=== PATIENT | female | born 1990 | race Caucasian/White ===

== ENCOUNTER 2018-06-14 10:32 | Day surgery (SDC) | payer MEDICAID ==
[2018-06-13 11:09] LABS: BASOPHILS # (AUTO) 0.03 x10^3/uL (0-0.1); BASOPHILS % (AUTO) 0 % (0-1); EOSINOPHILS # (AUTO) 0.06 x10^3/uL (0-0.4); EOSINOPHILS % (AUTO) 1 % (1-7); LYMPHOCYTES # (AUTO) 1.96 x10^3/uL (1-3.4); LYMPHOCYTES % (AUTO) 30 % (22-44); MD NO; MEAN CORPUSCULAR HEMOGLOBIN 29.6 pg (27.0-34.8); MEAN PLATELET VOLUME 9.5 fL (7.4-10.4); MONOCYTES # (AUTO) 0.46 x10^3/uL (0.2-0.8); MONOCYTES % (AUTO) 7 % (2-9); NEUTROPHILS # (AUTO) 4.09 x10^3/uL (1.8-6.8); NEUTROPHILS % (AUTO) 62 % (42-75); PLATELET COUNT 226 x10^3/uL (130-400); RED BLOOD COUNT 4.89 x10^6/uL (3.82-5.3); RED CELL DISTRIBUTION WIDTH 13.6 % (9.6-15.2)
[2018-06-13 11:11] LABS: MICROSCOPIC INDICATED
[2018-06-13 11:12] LABS: CULTURE INDICATED? YES
[2018-06-13 13:08] LABS: ALBUMIN 3.9 g/dL (3.4-5.0); ANION GAP 9 mmol/L (5-15); CALCIUM 8.9 mg/dL (8.5-10.1); CHLORIDE 107 mmol/L (98-107); CREATININE 0.86 mg/dL (0.55-1.02)
[2018-06-13 13:12] LABS: ALKALINE PHOSPHATASE 82 U/L (45-117); BILIRUBIN,TOTAL 0.4 mg/dL (0.2-1.0); TOTAL PROTEIN 8.6 g/dL (6.4-8.2)
[2018-06-13 13:14] LABS: ALANINE AMINOTRANSFERASE 26 U/L (12-78)
[~2018-06-14] VITALS: Ht 152.4 cm; Wt 68.0 kg
[~2018-06-14 10:32] MED LIST: DOCU-131 PO; IBUP-1222 PO; NITR100C56 PO; No meds per pt.
[2018-06-14] MEDS ORDERED: LACTATED RINGERS 1,000 ML IV SCH (11:12)
[2018-06-14 11:13] VITALS: BP 121/80
[2018-06-14] MEDS ORDERED: MIDAZOLAM 1 MG/ML, 2ML ONE (12:36)
[2018-06-14] MEDS ORDERED: FENTANYL PF 250 MCG/5ML ONE (12:36)
[2018-06-14] MEDS ORDERED: BUPIVACAINE 0.25% ONE (12:43)
[2018-06-14] MEDS ORDERED: SILVER NITRATE STICK TP ONE (12:43)
[2018-06-14] MEDS ORDERED: PROPOFOL 10 MG/ML, 20ML ONE (13:05)
[2018-06-14] MEDS ORDERED: ONDANSETRON 2MG/ML, 2ML ONE (13:05)
[2018-06-14] MEDS ORDERED: SUCCINYLCHOLINE 20 MG/ML, 10ML ONE (13:05)
[2018-06-14] MEDS ORDERED: DEXAMETHASONE 4 MG/ML, 1ML ONE (13:05)
[2018-06-14] MEDS ORDERED: ROCURONIUM 10 MG/ML,10ML ONE (13:05)
[2018-06-14] MEDS ORDERED: KETOROLAC 30 MG/1 ML ONE (13:05)
[2018-06-14] MEDS ORDERED: LABETALOL 5MG/ML, 20ML IV PRN (13:30)
[2018-06-14] MEDS ORDERED: hydrALAzine 20 MG/ML, 1ML IV PRN (13:30)
[2018-06-14] MEDS ORDERED: OXYcodone 5 MG/5 ML ORAL.SOL UDC PO PRN (13:30)
[2018-06-14] MEDS ORDERED: METOCLOPRAMIDE 5 MG/ML, 2ML IV PRN (13:30)
[2018-06-14] MEDS ORDERED: ALBUTEROL SULFATE 2.5 MG/3 ML NPPB PRN (13:30)
[2018-06-14] MEDS ORDERED: PROMETHAZINE 25 MG/ML, 1ML IV PRN (13:30)
[2018-06-14] MEDS ORDERED: HYDROmorphone 1 MG/ML, 1ML IV PRN (13:30)
[2018-06-14] MEDS ORDERED: MEPERIDINE/PF 25MG/0.5ML IVPush PRN (13:30)
[2018-06-14] MEDS ORDERED: FENTANYL PF 100 MCG/2ML IV PRN (13:30)
[2018-06-14] MEDS ORDERED: KETOROLAC 30 MG/1 ML IV PRN (13:30)
[2018-06-14] MEDS ORDERED: ONDANSETRON 2MG/ML, 2ML IVPush PRN (13:30)
[2018-06-14] MEDS ORDERED: FENTANYL PF 100 MCG/2ML ONE (14:22)
[2018-06-14] MEDS ORDERED: OXYcodone 5 MG/5 ML ORAL.SOL UDC ONE (14:23)
== END 2018-06-14 16:55 | disposition home or self-care (01) ==
LOC: OUT 10:32
PROVIDERS: ATTEND Obstetrics & Gynecology
DX: Z30.2 Encounter for sterilization (principal); Z79.899 Other long term (current) drug therapy
CPT/HCPCS: 36415; 58670; 80053; 81001; 84702; 85025; 86850; 86900; 87077; 87086; 87186; 88302; J0330; J1100; J1885; J2250; J2405; J2704; J3010; J3490; J7120